=== PATIENT | male | born 1995 | race African-American/Black ===

== ENCOUNTER 2021-07-26 00:44 | Emergency (ER) | payer OTHER, MEDICAID ==
[~2021-07-26] VITALS: Ht 157.5 cm; Wt 47.1 kg
[2021-07-26 01:34] VITALS: BP 133/65
[2021-07-26] MEDS ORDERED: BACITRACIN ZINC OINT UDPKT TOP ONE (02:15)
[2021-07-26] MEDS ORDERED: LIDOCAINE HCL/PF 1% 10 MG/ML 5ML VIAL INFIL ONE (02:15)
[2021-07-26] MEDS ORDERED: CEPH500T MT (03:54)
== END 2021-07-26 04:56 | disposition home or self-care (01) ==
LOC: ER 00:44
DX: L02.416 Cutaneous abscess of left lower limb (principal); F84.0 Autistic disorder
CPT/HCPCS: 10060; 99283; J3490; Z7610